=== PATIENT | male | born 1950 | race Caucasian/White ===

== ENCOUNTER → 2020-05-29 | Outpatient (CLI) | payer OTHER ==
[~2020-05-29] VITALS: Ht 175.3 cm; Wt 79.4 kg
[~2020-05-29] MED LIST: FLOMAX0.4 MG PO; LIPITOR80 MG PO; OSTEO BI-FLEX1 EAC1 PO; PILOCARPINE 1%15 ML OPHTHALMIC; SYNTHROID100 MC1 PO; TIMOLOL MALEATE5 M2 OPHTHALMIC; VITAMIN B-125000 MCG PO; VITAMINC500 PO; XALATAN2.5 ML OPHTHALMIC
--- NOTE | ~2020-05-29 | HPC ---
[facility] [address] [address] PAIN MANAGEMENT CONSULTATION Name: EJRRICA SIMS Room #: REG CL M.R.#: [id number] Admission: 05/29/20 Attend Phys: Theodore Carbone MD Discharge: Date of : 46 Report #: [id number] THIS REPORT FOR: cc: Serg Li MD, Herbert M. MD Morgan,Theodore Skaggs MD ~ CC: Serg Carbone DATE OF SERVICE: 05/29/2020 Followup visit for low back pain with radiculopathy. The patient is a pleasant gentleman who I have seen previously, although it has been about 2 years. That is a good thing. He has responded nicely to epidural injections with some long-term relief. When I saw him at [facility], he complained of pain mostly in his low back as sharp, stabbing pain. Pain radiates from there into his hips, usually right worse than left. An MRI was performed and has been repeated. It shows as expected some degenerative changes that have been fairly stable over the years, but are consistent with the symptoms that he has. Evidence of multilevel degenerative disk disease and Modic changes were noted, particularly at L3-L4, with relatively large Schmorl's nodes. There is no spinal stenosis fortunately. There is [id number] left L3-L4 and right L4-L5 neural foraminal stenosis with osteophytes and facet osteophytes. A renal cyst is noted. We discussed that today as being benign. MEDICATIONS: Pilocarpine, timolol, Xalatan eye drops, ____, Synthroid, tamsulosin, Osteo Bi-Flex, vitamin B12, vitamin ____. SOCIAL HISTORY: Denies use of tobacco, drinks alcohol in a social setting a few times a week. Continues to workout regularly and goes to the gym. He was at [employer] over at [employer] and there were only 6 people in the entire gym. He worked out on a machine and came home. He is being careful about COVID restrictions. PAST MEDICAL HISTORY: Positive for prostate cancer, but checkups have shown no recurrent problems. It has been a number of years since his surgery. He has had 2 prior hernias and an arthroscopic surgery on his knee. REVIEW OF SYSTEMS: Positive mostly just for the pain. He denies other issues. Sleeps well. No chest pain, shortness of breath. A bit of nocturia at night. He does not have incontinence. [facility] [address] [place] [address] PAIN MANAGEMENT CONSULTATION Name: JERRICA SIMS Room #: [facility] [id number] Admission: 05/29/20 Attend Phys: Theodore Carbone MD Discharge: Date of : 46 Report #: [id number] PHYSICAL EXAMINATION: GENERAL: A pleasant gentleman. He is 5 feet 9 inches, 175 pounds. VITAL SIGNS: Blood pressure 142/98, heart rate 96, respirations 16, O2 sats 98%. Pain intensity 6/10. MUSCULOSKELETAL: He moves independently from sitting to standing, ambulates with mild antalgic features. There is no straight leg raising today. Tenderness across the low back, pain with back extension. IMPRESSION: Lumbar spondylosis with radiculopathy. Given his good response to prior epidural injections at L3-L4, I will repeat the injection today. Potential risks and benefits were reviewed. He would like to proceed. DESCRIPTION OF PROCEDURE: The patient was taken to the fluoroscopic suite, placed prone, skin prepped with ChloraPrep. Skin anesthetized over the L3-L4 interspace. Using biplanar fluoroscopic views, I advanced the needle into the epidural space using loss of resistance. There was no blood nor CSF aspirated. A 1 mL of Omnipaque injected. Good spread of dye observed into the epidural space. This was followed by 3 mL of 0.5% lidocaine mixed with 80 mg of triamcinolone. He tolerated the procedure well. There were no complications. He was taken to recovery room for observation and discharged after about 40 minutes today. Followup visit planned as needed. By: [id number] Theodore Carbone MD /nt
[2020-05-29 12:45] VITALS: BP 142/98
--- NOTE | 2020-05-29 12:54 | NUR ---
Pain Clinic Assessment: 1. History of Osteoarthritis: SPINE KNEE History of Rheumatoid Arthritis: 2. Height: 5 ft. 9 in. 175.3 cm. Weight: 175.0 lb. oz. 79.380 kg. Patient's BMI: 25.8 3. Vital Signs: BP: 142/98 Pulse: 96 Resp: 16 Temp: 02 Sat: 98 ECG Mon: 4. Pain Intensity: 6 5. Fall Risk: Dizziness: N Needs help standing or walking: N Fallen in the last 3 months: N Fall risk comments: 6. Patient on Blood Thinner: None 7. History of Hypertension: N 8. Opioid Therapy greater than 6 weeks: N Opiate Contract Signed: 9. Risk Assessment Tool Provided: 10. Functional Assessment Tool: 11. Recreational Drug Use: Never Drug Type: Tobacco Use: Never Smoker Tobacco Type: Amount or Packs/day: How Many Years: Alcohol Use: Yes Frequency: Weekly Quant: 4 DRINKS
== END | disposition home or self-care (01) ==
LOC: PAIN 06:50
PROVIDERS: ATTEND Anesthesiology Pain Medicine
DX: M47.26 Other spondylosis with radiculopathy, lumbar region (principal); M54.5 Low back pain; E07.9 Disorder of thyroid, unspecified; Z98.890 Other specified postprocedural states; Z79.899 Other long term (current) drug therapy; Z85.46 Personal history of malignant neoplasm of prostate; G89.29 Other chronic pain

== ENCOUNTER → 2020-06-26 | Outpatient (CLI) | payer OTHER ==
[~2020-06-26] VITALS: Ht 175.3 cm; Wt 79.4 kg
--- NOTE | ~2020-06-26 | HPC ---
[facility] [address] [place] [address] PAIN MANAGEMENT CONSULTATION Name: JERRICA SIMS Room #: REG CL M.R.#: [id number] Admission: 06/26/20 Attend Phys: Theodore Carbone MD Discharge: Date of : 46 Report #: [id number] THIS REPORT FOR: cc: Serg Li MD, Herbert M. MD Morgan,Theodore Skaggs MD ~ CC: Serg Carbone DATE OF SERVICE: 06/26/2020 Followup visit for lumbar radiculopathy. The patient had good response to his epidural injection with partial improvement. He is here today for a second injection. We discussed his improvement in her hope that we can get by with as few as possible number of injections. I reviewed his x-rays with spinal stenosis with [id number] left L3-L4 and right L4-L5 neural foraminal narrowing with osteophytes and facet osteophytes also noted. He has a large renal cyst. We discussed that today as benign. He denies use of tobacco, but drinks alcohol frequently up to 6 times weekly. His functional assessment score, however, is quite good 3/70. Risk assessment score is 3, considered low risk for addiction. He does not use opioids. He has no history of hypertension, takes no blood thinners. He has not fallen in the last 3 months. He remains active with exercise. Pain intensity is low today, but can flareup depending on activity. PHYSICAL EXAMINATION: GENERAL: He is 5 feet 9 inches, BMI 25.8. VITAL SIGNS: Blood pressure 148/102, heart rate is 96, respirations 14. MUSCULOSKELETAL: Moves independently from sitting to standing position. His gait is nonantalgic. He has some tenderness across his low back, mild straight leg raising discomfort. IMPRESSION: Lumbar radiculopathy. RECOMMENDATIONS: Repeat epidural injection today, L3-L4 under fluoroscopic guidance. PROCEDURE: Lumbar epidural steroid injection. PROCEDURE NOTE: After both written and informed consent to include risk of spinal cord damage, increased pain, weakness and dural puncture, the patient was [address] [address] PAIN MANAGEMENT CONSULTATION Name: JERRICA SIMS Room #: REG MADHU Hughes#: [id number] Admission: 06/26/20 Attend Phys: Theodore Carbone MD Discharge: Date of : 46 Report #: [id number] taken to the fluoroscopy suite, placed in the prone position. After sterile prep and drape, a skin wheal with lidocaine was raised. A 22-gauge epidural Tuohy needle was inserted in the midline at L3-L4 with good loss to resistance. Negative aspiration for cerebrospinal fluid or blood was noted. Then 1 mL of Omnipaque under biplanar fluoroscopy showed good spread within the epidural space. This was followed with 1 mL of 0.5% lidocaine mixed with 80 mg of triamcinolone was then injected to flush the needle; it was removed. The patient was monitored for an appropriate period of time and discharged in good and stable condition. By: [id number] Theodore Carbone MD /nt
[2020-06-26 12:50] VITALS: BP 148/102
--- NOTE | 2020-06-26 13:05 | NUR ---
Pain Clinic Assessment: 1. History of Osteoarthritis: SPINE KNEE History of Rheumatoid Arthritis: Not Applicable 2. Height: 5 ft. 9 in. 175.3 cm. Weight: 175.0 lb. oz. 79.380 kg. Patient's BMI: 25.8 3. Vital Signs: BP: 148/102 Pulse: 96 Resp: 14 Temp: 02 Sat: 100 ECG Mon: 4. Pain Intensity: 0 5. Fall Risk: Dizziness: N Needs help standing or walking: N Fallen in the last 3 months: N Fall risk comments: 6. Patient on Blood Thinner: None 7. History of Hypertension: N 8. Opioid Therapy greater than 6 weeks: N Opiate Contract Signed: 9. Risk Assessment Tool Provided: LOW RISK 12/03 10. Functional Assessment Tool: 11. Recreational Drug Use: Never Drug Type: Tobacco Use: Never Smoker Tobacco Type: Amount or Packs/day: How Many Years: Alcohol Use: Yes Frequency: Weekly Quant: 6
== END | disposition home or self-care (01) ==
LOC: PAIN 06:56
PROVIDERS: ATTEND Anesthesiology Pain Medicine
DX: M54.16 Radiculopathy, lumbar region (principal); G89.29 Other chronic pain; M48.061 Spinal stenosis, lumbar region without neurogenic claudication; Z98.890 Other specified postprocedural states; Z79.899 Other long term (current) drug therapy

== ENCOUNTER → 2020-12-25 | Outpatient (CLI) | payer OTHER ==
[~2020-12-25] VITALS: Ht 175.3 cm; Wt 81.7 kg
[2020-12-25 10:30] VITALS: BP 151/96
--- NOTE | 2020-12-25 10:36 | NUR ---
Pain Clinic Assessment: 1. History of Osteoarthritis: SPINE KNEE History of Rheumatoid Arthritis: Not Applicable 2. Height: 5 ft. 9 in. 175.3 cm. Weight: 180.2 lb. oz. 81.738 kg. Patient's BMI: 26.6 3. Vital Signs: BP: 151/96 Pulse: 80 Resp: 16 Temp: 02 Sat: 99 ECG Mon: 4. Pain Intensity: 6 5. Fall Risk: Dizziness: N Needs help standing or walking: N Fallen in the last 3 months: N Fall risk comments: 6. Patient on Blood Thinner: None 7. History of Hypertension: N 8. Opioid Therapy greater than 6 weeks: N Opiate Contract Signed: 9. Risk Assessment Tool Provided: LOW RISK 12/03 10. Functional Assessment Tool: 11. Recreational Drug Use: Never Drug Type: Tobacco Use: Never Smoker Tobacco Type: Amount or Packs/day: How Many Years: Alcohol Use: Yes Frequency: Weekly Quant: 6
== END | disposition home or self-care (01) ==
LOC: PAIN 06:48
PROVIDERS: ATTEND Anesthesiology Pain Medicine
DX: M51.16 Intervertebral disc disorders with radiculopathy, lumbar region (principal); M48.061 Spinal stenosis, lumbar region without neurogenic claudication; G89.29 Other chronic pain; Z98.890 Other specified postprocedural states; Z79.899 Other long term (current) drug therapy

== ENCOUNTER → 2021-04-23 | Outpatient (CLI) | payer OTHER ==
[~2021-04-23] VITALS: Ht 175.3 cm; Wt 79.0 kg
[2021-04-23 09:15] VITALS: BP 140/90
--- NOTE | 2021-04-23 09:31 | NUR ---
Pain Clinic Assessment: 1. History of Osteoarthritis: SPINE KNEE History of Rheumatoid Arthritis: Not Applicable 2. Height: 5 ft. 9 in. 175.3 cm. Weight: 174.2 lb. oz. 79.017 kg. Patient's BMI: 25.7 3. Vital Signs: BP: 140/90 Pulse: 74 Resp: 16 Temp: 02 Sat: 100 ECG Mon: 4. Pain Intensity: 4 5. Fall Risk: Dizziness: N Needs help standing or walking: N Fallen in the last 3 months: N Fall risk comments: 6. Patient on Blood Thinner: None 7. History of Hypertension: N 8. Opioid Therapy greater than 6 weeks: N Opiate Contract Signed: 9. Risk Assessment Tool Provided: LOW RISK 0 10. Functional Assessment Tool: 11. Recreational Drug Use: Never Drug Type: Tobacco Use: Never Smoker Tobacco Type: Amount or Packs/day: How Many Years: Alcohol Use: Yes Frequency: Quant:
== END | disposition home or self-care (01) ==
LOC: PAIN 06:55
PROVIDERS: ATTEND Anesthesiology Pain Medicine
DX: M51.16 Intervertebral disc disorders with radiculopathy, lumbar region (principal); M48.061 Spinal stenosis, lumbar region without neurogenic claudication; M47.26 Other spondylosis with radiculopathy, lumbar region; M25.78 Osteophyte, vertebrae; Z98.890 Other specified postprocedural states; Z79.899 Other long term (current) drug therapy

== ENCOUNTER → 2021-07-02 | Outpatient (CLI) | payer OTHER ==
[2021-06-18 10:40] VITALS: BP 153/97
[~2021-07-02] VITALS: Ht 175.3 cm; Wt 80.6 kg
[2021-07-02 10:15] VITALS: BP 152/102
--- NOTE | 2021-07-02 10:35 | NUR ---
Pain Clinic Assessment: 1. History of Osteoarthritis: SPINE KNEE History of Rheumatoid Arthritis: Not Applicable 2. Height: 5 ft. 9 in. 175.3 cm. Weight: 177.6 lb. oz. 80.559 kg. Patient's BMI: 26.2 3. Vital Signs: BP: 152/102 Pulse: 80 Resp: 16 Temp: 02 Sat: 100 ECG Mon: 4. Pain Intensity: 7 5. Fall Risk: Dizziness: N Needs help standing or walking: N Fallen in the last 3 months: N Fall risk comments: 6. Patient on Blood Thinner: None 7. History of Hypertension: N 8. Opioid Therapy greater than 6 weeks: N Opiate Contract Signed: 9. Risk Assessment Tool Provided: LOW RISK 0 10. Functional Assessment Tool: 11. Recreational Drug Use: Never Drug Type: Tobacco Use: Never Smoker Tobacco Type: Amount or Packs/day: How Many Years: Alcohol Use: Yes Frequency: Weekly Quant: 6
== END | disposition home or self-care (01) ==
LOC: PAIN 06-18 07:06
PROVIDERS: ATTEND Anesthesiology Pain Medicine
DX: M54.16 Radiculopathy, lumbar region (principal); G89.29 Other chronic pain; M19.90 Unspecified osteoarthritis, unspecified site; Z98.890 Other specified postprocedural states; Z79.899 Other long term (current) drug therapy